=== PATIENT | male | born 1985 | race Caucasian/White ===

== ENCOUNTER → 2019-04-14 | Outpatient (CLI) | payer BC, OTHER ==
--- NOTE | 2019-04-14 10:17 | REP ---
Clinical: Trauma. Technique: Frontal view of the chest with multiple views of the right hemithorax. Findings: Frontal view of the chest demonstrates no acute cardiopulmonary process. Multiple views of the right hemithorax demonstrates no obvious acute rib fracture or pathology. Impression: Normal right rib series Electronically Signed by Ozzy Yee MD 04/14/2019 10:08 A
--- NOTE | 2019-04-14 10:18 | REP ---
Three views lumbar spine: 04/14/2019. Indication: Lumbar spine trauma. Comparison: None. Findings: There is no acute fracture, subluxation or dislocation. Disc space height is maintained. No paraspinal soft tissue abnormalities are detected. Vertebral body alignment is anatomic. Impression: No acute osseous injury of the lumbar spine detected. Electronically Signed by Ant Avalos DO 04/14/2019 10:09 A
== END ==
LOC: M ADAMS 09:03
PROVIDERS: ATTEND Physician Assistant
DX: S20.221A Contusion of right back wall of thorax, initial encounter (principal)

== ENCOUNTER → 2019-07-23 | Outpatient (CLI) | payer OTHER ==
--- NOTE | 2019-07-23 08:53 | REPVR ---
PROCEDURE INFORMATION: Exam: MR Head Without Contrast Exam date and time: 07/23/2019 7:58 AM Age: 34 years old Clinical indication: Pain; Headache; Migraine; Aura effect not specified; Other: Unknown; Additional info: Migraine with aura, intractable, without status mi TECHNIQUE: Imaging protocol: MR of the head without contrast. COMPARISON: No relevant prior studies available. FINDINGS: Brain: There is no extra-axial collection or intra-axial mass. There is a focus of T2/FLAIR hyperintensity within the right posterior frontal semiovale, nonspecific. This could reflect focal small vessel ischemia, demyelination or sequela migraine. There is no diffusion restriction. Ventricles: Normal. No ventriculomegaly. Bones/joints: Unremarkable. Soft tissues: Unremarkable. Sinuses: There is mild right maxillary sinus mucosal thickening. Mastoid air cells: Normal as visualized. No mastoid effusion. Orbits: Unremarkable. IMPRESSION: No acute intracranial abnormality. Electronically signed by: Katherine Angel On 07/23/2019 08:53:17 AM
== END ==
LOC: M RAD 07:17
PROVIDERS: ATTEND Psychiatry & Neurology Neurology
DX: G43.909 Migraine, unspecified, not intractable, without status migrainosus (principal)

== ENCOUNTER → 2020-08-23 | Outpatient (CLI) | payer OTHER ==
--- NOTE | 2020-08-23 09:44 | REP ---
INDICATION: ABNORMAL LFT'S COMPARISON: None. TECHNIQUE: Real time loyd scale ultrasound examination using curved array transducer. FINDINGS: The liver demonstrates mild increased echotexture with poor through transmission suggesting fatty infiltration. No obvious focal hepatic lesion identified. The pancreas is incompletely evaluated but visualized portions appear normal. The gallbladder is normal and without gallstones, wall thickening, or pericholecystic fluid. No biliary ductal dilatation is appreciated and the common bile duct measures 4.9 mm diameter. The right kidney is normal in reniform shape without hydronephrosis and measures 11.9 x 4.8 x 5.5 cm. No ascites in the visualized right upper quadrant. Abdominal aorta is incompletely evaluated due to interposed bowel gas. IMPRESSION: Findings suggesting hepatosteatosis. <Electronically signed by Ozzy Yee > 08/23/20 [id number]
== END ==
LOC: M RAD 08:44
PROVIDERS: ATTEND Physician Assistant Medical
DX: R94.5 Abnormal results of liver function studies (principal)

== ENCOUNTER → 2022-04-27 | Outpatient (CLI) | payer OTHER | LOC: M RAD 14:10 | PROVIDERS: ATTEND Physician Assistant | DX: J45.20 Mild intermittent asthma, uncomplicated (principal) ==

== ENCOUNTER → 2022-06-21 | Outpatient (REF) | payer OTHER | LOC: M SFHCDERM 13:24 | PROVIDERS: ATTEND Nurse Practitioner Family | DX: D22.39 Melanocytic nevi of other parts of face (principal) ==

== ENCOUNTER → 2023-02-15 | Outpatient (CLI) | payer OTHER | LOC: M RAD 07:17 | PROVIDERS: ATTEND Orthopaedic Surgery | DX: M22.42 Chondromalacia patellae, left knee (principal); M23.222 Derangement of posterior horn of medial meniscus due to old tear or injury, left knee; M71.22 Synovial cyst of popliteal space [Baker], left knee; M25.562 Pain in left knee ==

== ENCOUNTER → 2023-03-29 | Outpatient (REF) | LOC: M PLAIMG 13:03 | PROVIDERS: ATTEND Internal Medicine | DX: R06.02 Shortness of breath (principal) ==

== ENCOUNTER → 2023-04-16 | Outpatient (CLI) | payer OTHER | LOC: M PLAIMG 09:36 | PROVIDERS: ATTEND Otolaryngology | DX: J32.0 Chronic maxillary sinusitis (principal) ==

== ENCOUNTER → 2023-05-23 | Outpatient (CLI) | payer BC, OTHER | LOC: M SOG 08:00 | PROVIDERS: ATTEND Orthopaedic Surgery | DX: M25.551 Pain in right hip (principal) ==

== ENCOUNTER → 2023-06-04 | Outpatient (CLI) | payer OTHER | LOC: M PLAIMG 06:44 | PROVIDERS: ATTEND Orthopaedic Surgery | DX: M25.851 Other specified joint disorders, right hip (principal) ==

== ENCOUNTER → 2023-07-19 | Outpatient (CLI) | payer OTHER ==
[~2023-07-19] MED LIST: ISOVUE-300 61% 100ML VIAL As Ordered ONE; LIDOCAINE 1% MDV 20ML VIAL As Ordered ONE; methylPREDNISolone SUSP 40MG/ML 1ML VIAL (DEPO MEDROL) As Ordered ONE
== END ==
LOC: M RAD 14:17
PROVIDERS: ATTEND Orthopaedic Surgery
DX: M16.31 Unilateral osteoarthritis resulting from hip dysplasia, right hip (principal)
CPT/HCPCS: 20610; 77002; J0665; J1030; Q9967

== ENCOUNTER → 2023-08-09 | Outpatient (CLI) | payer OTHER | LOC: M SOG 09:08 | PROVIDERS: ATTEND Orthopaedic Surgery | DX: M25.551 Pain in right hip (principal) ==

== ENCOUNTER → 2023-08-20 | Outpatient (CLI) | payer OTHER ==
[~2023-08-20] MED LIST changes: +ERGO500029 PO; +FLUT1BLS3 INH; -ISOVUE-300 61% 100ML VIAL As Ordered ONE; -LIDOCAINE 1% MDV 20ML VIAL As Ordered ONE; +PROA1AER2 INH; +ROSU20TA61 PO; +TOPA50TA8 PO; +TOPI-21 PO; +TRAZ1TAB11 PO; +VENL37.52 PO; +ZOLM5TAB20 PO; -methylPREDNISolone SUSP 40MG/ML 1ML VIAL (DEPO MEDROL) As Ordered ONE
== END ==
LOC: M EKG 09:46
PROVIDERS: ATTEND Anesthesiology
DX: Z01.818 Encounter for other preprocedural examination (principal)

== ENCOUNTER 2023-08-30 11:37 | Day surgery (SDC) | payer OTHER ==
[~2023-08-30] VITALS: Ht 182.9 cm; Wt 162.0 kg
[2023-08-30] MEDS: LR 1,000 ML IV SCH (12:42)
[2023-08-30] MEDS ORDERED: MIDAZOLAM INJ 2MG/2ML VIAL As Ordered ONE (15:35)
[2023-08-30] MEDS ORDERED: fentaNYL 100 MCG/2 ML INJECTION As Ordered ONE (15:36)
[2023-08-30] MEDS ORDERED: propofoL 200 MG/20 ML VIAL As Ordered ONE (15:44)
[2023-08-30] MEDS ORDERED: LIDOCAINE 2% 100MG/5ML SDV (FOR ANES.) As Ordered ONE (15:45)
[2023-08-30] MEDS ORDERED: ROCURONIUM BROMIDE 50MG/5ML VIAL As Ordered ONE (15:50)
[2023-08-30] MEDS ORDERED: ONDANSETRON 4MG 2ML VIAL As Ordered ONE (15:50)
[2023-08-30] MEDS ORDERED: NALOXONE INJ 0.4MG/1ML VIAL As Ordered ONE (16:10)
[2023-08-30] MEDS ORDERED: GLYCOPYRROLATE INJ 0.2 MG/ML 2 ML VIAL As Ordered ONE (17:12)
[2023-08-30] MEDS ORDERED: ACETAMINOPHEN 1000MG 100ML IV BAG As Ordered ONE (17:30)
[2023-08-30] MEDS ORDERED: SUGAMMADEX SODIUM 500 MG/5 ML VIAL (BRIDION) As Ordered ONE (17:58)
[2023-08-30] MEDS ORDERED: ONDANSETRON 4MG 2ML VIAL IV PRN (18:00)
[2023-08-30] MEDS ORDERED: fentaNYL 100 MCG/2 ML INJECTION IV PRN (18:00)
[2023-08-30] MEDS ORDERED: LR 1,000 ML IV SCH (18:00)
[2023-08-30] MEDS ORDERED: ALBUTEROL 6.7GM INHALER **FOR ANES. CART/OMNICELL ONLY As Ordered ONE (18:24)
[2023-08-30] MEDS: LIDOCAINE W/EPINEPHRINE 1% 20ML VIAL As Ordered ONE (18:25)
[2023-08-30] MEDS: SODIUM CHLORIDE 0.9% NASAL GEL 15GM (AYR) As Ordered ONE (18:25)
[2023-08-30] MEDS: METHYLENE BLUE 0.5% (5MG/ML) 10 ML AMP (PROVAYBLUE) As Ordered ONE (18:25)
[2023-08-30] MEDS: EPINEPHrine 1MG/ML INJ 30ML MD-VIAL As Ordered ONE (18:25)
[2023-08-30] MEDS ORDERED: ePHEDrine SULFATE 25 MG/5 ML(5MG/ML) SYRINGE As Ordered ONE (18:37)
[2023-08-30] MEDS: oxyCODONE 5MG TAB PO PRN (18:48)
[2023-08-30 19:21] VITALS: BP 133/69; TEMP 97.9; O2SAT 96
== END 2023-08-30 19:31 | disposition home or self-care (01) ==
LOC: M SDC 11:37
PROVIDERS: ATTEND Otolaryngology
DX: J34.2 Deviated nasal septum (principal); J34.3 Hypertrophy of nasal turbinates; R09.81 Nasal congestion; F43.10 Post-traumatic stress disorder, unspecified; G47.30 Sleep apnea, unspecified; Z79.899 Other long term (current) drug therapy
CPT/HCPCS: 30520; 30801; J0131; J0171; J1100; J2250; J2310; J2405; J3010; Q9968

== ENCOUNTER → 2023-09-21 | Outpatient (CLI) | payer BC, OTHER | LOC: M SOG 08:07 | PROVIDERS: ATTEND Orthopaedic Surgery | DX: M25.551 Pain in right hip (principal) ==

== ENCOUNTER → 2023-12-28 | Outpatient (CLI) | payer BC, OTHER | LOC: M PAIN 08:00 | PROVIDERS: ATTEND Nurse Practitioner Family | DX: M25.551 Pain in right hip (principal); G89.29 Other chronic pain; Z79.899 Other long term (current) drug therapy ==

== ENCOUNTER → 2024-03-07 | Outpatient (CLI) | payer BC, OTHER ==
[~2024-03-07] MED LIST changes: +ISOVUE-M 300 61% 15ML VIAL As Ordered ONE; +LIDOCAINE 1% SDV 30ML VIAL As Ordered ONE; +TRIAMCINOLONE ACETONIDE SUSP 40MG/ML 1ML VIAL As Ordered ONE; +diazePAM 5MG TABLET As Ordered ONE; +oxyCODONE 5MG TAB As Ordered ONE
== END ==
LOC: M PAIN 11:00
PROVIDERS: ATTEND Anesthesiology
DX: M25.551 Pain in right hip (principal); G43.909 Migraine, unspecified, not intractable, without status migrainosus; J45.909 Unspecified asthma, uncomplicated; G47.30 Sleep apnea, unspecified; Z79.899 Other long term (current) drug therapy
CPT/HCPCS: 20610; 77002; J0665; J3301; Q9967

== ENCOUNTER → 2024-04-08 | Outpatient (CLI) | payer BC, OTHER ==
[~2024-04-08] MED LIST changes: -ISOVUE-M 300 61% 15ML VIAL As Ordered ONE; -LIDOCAINE 1% SDV 30ML VIAL As Ordered ONE; -ROSU20TA61 PO; +ROSU20TA86 PO; -TRIAMCINOLONE ACETONIDE SUSP 40MG/ML 1ML VIAL As Ordered ONE; -diazePAM 5MG TABLET As Ordered ONE; -oxyCODONE 5MG TAB As Ordered ONE
== END ==
LOC: M PAIN 11:30
PROVIDERS: ATTEND Nurse Practitioner Family
DX: G89.29 Other chronic pain (principal); M25.551 Pain in right hip; G43.909 Migraine, unspecified, not intractable, without status migrainosus; G47.30 Sleep apnea, unspecified; J45.909 Unspecified asthma, uncomplicated; Z79.899 Other long term (current) drug therapy; Z87.891 Personal history of nicotine dependence

== ENCOUNTER → 2024-07-01 | Outpatient (CLI) | payer OTHER, BC | LOC: M PAIN 17:00 | PROVIDERS: ATTEND Nurse Practitioner Family | DX: M25.551 Pain in right hip (principal); G89.29 Other chronic pain; Z79.899 Other long term (current) drug therapy; Z87.891 Personal history of nicotine dependence ==